=== PATIENT | female | born 1980 | race Caucasian/White ===

== ENCOUNTER 2016-05-14 | Emergency (ER) | payer OTHER | END 2016-05-14 12:01 | disposition home or self-care (01) | DX: H10.32 Unspecified acute conjunctivitis, left eye (principal) ==

== ENCOUNTER 2016-06-06 19:42 | Emergency (ER) | payer OTHER ==
[2016-06-06] MEDS ORDERED: predniSONE 20 MG TABLET PO STA (20:49)
[2016-06-06] MEDS ORDERED: FLUCONAZOLE 100 MG TABLET PO STA (20:51)
[2016-06-06] MEDS ORDERED: AZITHROMYCIN 250 MG TABLET PO STA (20:51)
[2016-06-06] MEDS ORDERED: ALBUTEROL NEB 2.5 MG/3 ML INH STA (20:52)
[2016-06-06] MEDS ORDERED: AZITHROMYCIN 250 MG TABLET PO ONE (20:53)
[2016-06-06] MEDS ORDERED: FLUCONAZOLE 100 MG TABLET ONE (20:54)
[2016-06-06] MEDS ORDERED: predniSONE 20 MG TABLET ONE (20:54)
[2016-06-06] MEDS ORDERED: ALBUTEROL NEB 2.5 MG/3 ML INH ONE (21:04)
[2016-06-06] MEDS ORDERED: ALBUTEROL 8 GM INHALER INH STA (21:35)
[2016-06-06] MEDS ORDERED: BENZONATATE 100 MG CAPSULE PO STA (21:35)
[2016-06-06] MEDS ORDERED: guaiFENesin/CODEINE 5 ML UDC PO STA (21:35)
[2016-06-06] MEDS ORDERED: guaiFENesin/CODEINE 5 ML UDC ONE (21:39)
[2016-06-06] MEDS ORDERED: BENZONATATE 100 MG CAPSULE PO ONE (21:39)
[2016-06-06] MEDS ORDERED: ALBUTEROL 8 GM INHALER INH ONE (21:58)
== END 2016-06-06 22:45 | disposition home or self-care (01) ==
DX: R05 Cough (principal); R06.00 Dyspnea, unspecified; R55 Syncope and collapse; E11.9 Type 2 diabetes mellitus without complications
CPT/HCPCS: 87275; 87276; 87801; 94640; 94664; 99283; A9270; J7512; J7613

== ENCOUNTER 2017-07-07 19:36 | Emergency (ER) | payer OTHER ==
[2017-07-07 19:48] VITALS: BP 122/92
--- NOTE | 2017-07-07 21:42 | ED Physician Documentation ---
PD HPI URI - Stated complaint Stated Complaint: COUGH - Chief complaint Chief Complaint: Resp - History obtained from History obtained from: Patient - History of Present Illness Timing - onset: How many weeks ago (3) Timing duration: Weeks (3) Timing details: Gradual onset Pain level max: 0 Pain level now: 0 Associated symptoms: Productive cough (yellow). No: Fever, Hemoptysis, Chest pain Contributing factors: Sick contact Improves by: Rest Worsened by: Activity, Breathing - Additional information Additional information: Patient has had a cough for the past 3 weeks. States has had pneumonia in the past and is concerned she may be developing this again. Review of Systems Nose: reports: Rhinorrhea / runny nose, Congestion Respiratory: reports: Cough : denies: Now EGA Skin: denies: Rash Musculoskeletal: denies: Neck pain, Back pain Neurologic: denies: Headache PD PAST MEDICAL HISTORY - Past Medical History Past Medical History: Yes Respiratory: None Neuro: None Endocrine/Autoimmune: Type 2 diabetes - Past Surgical History Past Surgical History: Yes /PROFESSIONAL MODEL: Other - Present Medications Home Medications: Ambulatory Orders Medication Instructions Recorded Confirmed Ethinyl Estradiol/Drospirenone 1 tab PO DAILY 05/14/16 07/07/17 [Chana 28 Tablet] Metformin HCl 1,000 mg PO BID 05/14/16 07/07/17 Albuterol Sulf [Ventolin Hfa 1 - 2 puffs INH Q4HR PRN #1 inhaler 07/07/17 Inhaler] Benzonatate [Tessalon Perle] 100 - 200 mg PO TID PRN #30 capsule 07/07/17 Hydrocodone/Chlorphen P-Stirex 5 ml PO Q12H PRN #60 ml 07/07/17 [Hydrocodone-Chlorphen ER Susp] - Allergies Allergies/Adverse Reactions: Allergies Allergy/AdvReac Type Severity Reaction Status Date / Time penicillin V Allergy Mild Rash Verified 07/07/17 20:55 - Social History Does the pt smoke?: No Smoking Status: Never smoker Does the pt drink ETOH?: No Does the pt have substance abuse?: No - Immunizations Immunizations are current?: Yes - POLST Patient has POLST: No PD ED PE NORMAL - Vitals Vital signs reviewed: Yes - General General: Alert and oriented X 3, No acute distress, Well developed/nourished - HEENT HEENT: PERRL, Ears normal, Moist mucous membranes, Pharynx benign - Neck Neck: Supple, no meningeal sign - Cardiac Cardiac: RRR, Strong equal pulses - Respiratory Respiratory: No respiratory distress, Other (Diminished breath sounds bilaterally) - Abdomen Abdomen: Soft, Non tender, Non distended - Back Back: No CVA TTP - Derm Derm: Warm and dry, No rash - Extremities Extremities: No edema, No calf tenderness / cord - Neuro Neuro: Alert and oriented X 3 - Psych Psych: Normal mood, Normal affect Results - Vitals Vitals: Vital Signs - 24 hr 07/07/17 07/07/17 19:46 22:15 Temperature 36.8 C Heart Rate 89 16 L Respiratory 16 78 H Rate Blood Pressure 122/92 H O2 Saturation 98 Oxygen O2 Source Room air - Rads (name of study) cxr Radiology: Prelim report reviewed, EMP read contemporaneously, See rad report ( normal) PD MEDICAL DECISION MAKING - ED course Complexity details: reviewed results, re-evaluated patient, considered differential, d/w patient ED course: Patient is a 36-year-old female who presents to the emergency department what appears to be a viral upper respiratory infection. She is well-appearing, nontoxic. Feels better after nebulizer treatment. Will continue supportive care and follow-up with her doctor. Patient counseled regarding signs and symptoms for which I believe and urgent re-evaluation would be necessary. Patient with good understanding of and agreement to plan and is comfortable going home at this time This document was made in part using voice recognition software. While efforts are made to proofread this document, sound alike and grammatical errors may occur. Departure - Departure Disposition: 01 Home, Self Care Clinical Impression: Viral syndrome Condition: Good Instructions: ED Viral Syndrome Follow-Up: your,doctor in 1 week [Other] Prescriptions: Albuterol Sulf [Ventolin Hfa Inhaler] 1 - 2 puffs INH Q4HR PRN #1 inhaler PRN Reason: Shortness Of Air/Wheezing Benzonatate [Tessalon Perle] 100 - 200 mg PO TID PRN #30 capsule PRN Reason: Cough Hydrocodone/Chlorphen P-Stirex [Hydrocodone-Chlorphen ER Susp] 5 ml PO Q12H PRN #60 ml PRN Reason: Cough Comments: Return if you worsen. This should improve over the next week. Drink plenty of fluids and rest. Discharge Date/Time: 07/07/17 22:33
--- NOTE | 2017-07-07 22:03 | XRAY Report ---
EXAM: CHEST RADIOGRAPHY EXAM DATE: 07/07/2017 09:55 PM. CLINICAL HISTORY: Cough and wheezing. Shortness of breath. COMPARISON: None. TECHNIQUE: 2 views. FINDINGS: Lungs/Pleura: No alveolar consolidation or pleural effusion seen. No pneumothorax. Mediastinum: Heart and mediastinal contours are unremarkable. Other: None. IMPRESSION: 1. No acute abnormality seen in the chest. [facility] Referring Provider Line: [phone] SITE ID: [id number]
--- NOTE | 2017-07-07 22:03 | XRAY Preliminary Report ---
Exam: XR CHEST 2 VIEW X-RAY IMPRESSION: 1. No acute abnormality seen in the chest. [facility] SITE ID: [id number]
[2017-07-07] MEDS ORDERED: ALBUTEROL NEB 2.5 MG/3 ML INH STA (22:09)
[2017-07-07] MEDS ORDERED: DEXAMETHASONE 10 MG/ML VIAL PO STA (22:10)
== END 2017-07-07 22:33 | disposition home or self-care (01) ==
LOC: ED 19:36
DX: B34.9 Viral infection, unspecified (principal); E10.9 Type 1 diabetes mellitus without complications; Z79.84 Long term (current) use of oral hypoglycemic drugs
CPT/HCPCS: 71046; 94640; 94664; 99283

== ENCOUNTER 2017-07-15 12:35 | Emergency (ER) | payer OTHER ==
[2017-07-15] MEDS ORDERED: IPRATROPIUM/ALBUTEROL 3 ML NEB INH STA (13:50)
[2017-07-15] MEDS ORDERED: DEXAMETHASONE 10 MG/ML VIAL PO STA (13:50)
--- NOTE | 2017-07-15 13:53 | ED Physician Documentation ---
PD HPI URI - Stated complaint Stated Complaint: COUGH/CHEST PX - Chief complaint Chief Complaint: Resp - History obtained from History obtained from: Patient - History of Present Illness Timing - onset: How many weeks ago (2) Timing duration: Weeks (2) Timing details: Gradual onset, Still present, Waxing and waning Associated symptoms: Fever, Nasal congestion, Rhinorrhea, Productive cough, Chest pain, Dyspnea Contributing factors: Sick contact Improves by: Rest, Medication Similar symptoms before: Diagnosis (pneumonia) Recently seen: Emergency Dept - Additional information Additional information: 36-year-old female with a cough congestion was seen in the emergency department last week with a diagnosis of viral URI. She has had persistent cough and is now producing bright yellow phlegm she is extremely short of breath has run out of her albuterol inhaler and is having some central chest pain. She has had some episodes where she is almost had syncope secondary to exertion with shortness of breath. Review of Systems Constitutional: denies: Fever Eyes: denies: Decreased vision Ears: denies: Ear pain Nose: reports: Rhinorrhea / runny nose, Congestion Throat: reports: Sore throat Cardiac: reports: Chest pain / pressure. denies: Palpitations Respiratory: reports: Dyspnea, Cough, Wheezing GI: denies: Abdominal Pain, Nausea, Vomiting : denies: Dysuria, Frequency PD PAST MEDICAL HISTORY - Past Medical History Respiratory: None Neuro: None Endocrine/Autoimmune: Type 2 diabetes - Past Surgical History Past Surgical History: Yes /[employer]USS[employer]: Other - Present Medications Home Medications: Ambulatory Orders Medication Instructions Recorded Confirmed Ethinyl Estradiol/Drospirenone 1 tab PO DAILY 05/14/16 07/07/17 [Chana 28 Tablet] Metformin HCl 1,000 mg PO BID 05/14/16 07/07/17 Albuterol Sulf [Ventolin Hfa 1 - 2 puffs INH Q4HR PRN #1 inhaler 07/15/17 Inhaler] Azithromycin [Zithromax] 250 mg PO DAILY #6 tablet 07/15/17 Hydrocodone/Chlorphen P-Stirex 5 ml PO Q6HR PRN #200 ml 07/15/17 [Hydrocodone-Chlorphen ER Susp] predniSONE [Deltasone] 10 mg PO DAILY #26 tablet 07/15/17 - Allergies Allergies/Adverse Reactions: Allergies Allergy/AdvReac Type Severity Reaction Status Date / Time penicillin V Allergy Mild Rash Verified 07/07/17 20:55 - Social History Does the pt smoke?: No Smoking Status: Never smoker Does the pt drink ETOH?: No Does the pt have substance abuse?: No - Immunizations Immunizations are current?: Yes - POLST Patient has POLST: No PD ED PE NORMAL - Vitals Vital signs reviewed: Yes (tachy and hypertensive) - General General: Alert and oriented X 3, Well developed/nourished, Other (tachypneic at rest) - HEENT HEENT: Atraumatic, PERRL, EOMI, Other (The right TM is dull yellow and with distortion of the landmarks. The left is clear. ) - Neck Neck: No bony TTP - Cardiac Cardiac: RRR, No murmur - Respiratory Respiratory: Other (tachpneic at rest with shallow respirations and very little air movement. ) - Abdomen Abdomen: Soft, Non tender - Back Back: No CVA TTP, No spinal TTP - Derm Derm: Normal color, Warm and dry, No rash - Extremities Extremities: No deformity, No edema - Neuro Neuro: No motor deficit, No sensory deficit Eye Opening: Spontaneous Motor: Obeys Commands Verbal: Oriented GCS Score: 15 - Psych Psych: Normal mood, Normal affect Results - Vitals Vitals: Vital Signs - 24 hr 07/15/17 07/15/17 12:42 14:06 Temperature 36.9 C Heart Rate 101 H 96 Respiratory 18 20 Rate Blood Pressure 132/81 H O2 Saturation 99 Oxygen O2 Source Room air - Rads (name of study) 2 veiw chest Radiology: Prelim report reviewed (Impression: Normal two-view chest radiography.), EMP read indepedently, See rad report Departure - Departure Disposition: 01 Home, Self Care Clinical Impression: Otitis media Qualifiers: Otitis media type: suppurative Chronicity: acute Laterality: right Recurrence: not specified as recurrent Spontaneous tympanic membrane rupture: without spontaneous rupture Qualified Code(s): H66.001 - Acute suppurative otitis media without spontaneous rupture of ear drum, right ear Asthma exacerbation Qualifiers: Asthma severity: mild Asthma persistence: intermittent Qualified Code(s): J45.21 - Mild intermittent asthma with (acute) exacerbation Condition: Stable Instructions: ED Otitis Media Acute Adult, ED Bronchitis Asthmatic Follow-Up: [facility] [Provider Group] Prescriptions: Albuterol Sulf [Ventolin Hfa Inhaler] 1 - 2 puffs INH Q4HR PRN #1 inhaler PRN Reason: Shortness Of Air/Wheezing Hydrocodone/Chlorphen P-Stirex [Hydrocodone-Chlorphen ER Susp] 5 ml PO Q6HR PRN #200 ml PRN Reason: Cough Azithromycin [Zithromax] 250 mg PO DAILY #6 tablet predniSONE [Deltasone] 10 mg PO DAILY #26 tablet
--- NOTE | 2017-07-15 14:45 | XRAY Report ---
EXAM: CHEST RADIOGRAPHY EXAM DATE: 07/15/2017 02:35 PM. CLINICAL HISTORY: Chest pain with wheezing. COMPARISON: 07/07/2017. TECHNIQUE: 2 views. FINDINGS: Lungs/Pleura: No focal opacities evident. No pleural effusion. No pneumothorax. Normal volumes. Mediastinum: Heart and mediastinal contours are unremarkable. Other: None. IMPRESSION: Normal 2-view chest radiography. [facility] Referring Provider Line: [phone] SITE ID: [id number]
[2017-07-15 15:43] VITALS: BP 118/75
== END 2017-07-15 15:43 | disposition home or self-care (01) ==
LOC: ED 12:35
DX: J45.21 Mild intermittent asthma with (acute) exacerbation (principal); H66.001 Acute suppurative otitis media without spontaneous rupture of ear drum, right ear; E11.9 Type 2 diabetes mellitus without complications; Z79.84 Long term (current) use of oral hypoglycemic drugs
CPT/HCPCS: 71046; 94640; 99283